=== PATIENT | female | born 1970 | race Caucasian/White ===

== ENCOUNTER 2020-05-13 08:07 | Outpatient (CLI) | payer OTHER, SELFPAY ==
--- NOTE | 2020-05-19 01:31 | SLEEP_ITS ---
Home Sleep Test DATE OF STUDY: 05/13/2020 ORDERING PHYSICIAN: Carlos Bronson MD REASON FOR THE STUDY: Hypersomnia. HISTORY: This patient is a 49-year-old female, 5 feet tall, weighing 286 pounds with a body mass index of 55.8. She has complaints of difficulty sleeping for many years. She has been laid off due to COVID. In the past, she has worked at night, so normally she stays up late. Normal bedtime is somewhere around 2 or 3 in the morning. 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 She sleeps best when she is overly exhausted. She does toss and turn frequently at night and has a difficult time getting a restorative night of sleep. She wakes up at least 2-3 times at night to go to the bathroom. It takes her quite a while in the morning to wake up. She is not aware of any family history of sleep-disordered breathing. She constantly snores. When she is with friends on a weekend trip, they tell her that she snores loudly. Occasionally, she awakens at night with heartburn, belching, or cough. She frequently awakens from sleep feeling short of breath. She rarely has trouble sleeping with a cold, occasionally gasps for breath at night, occasionally has breathing problems at night witnessed by others, rarely sweats excessively at night and rarely notices her heart pounding or beating irregularly at night. She frequently falls asleep during the day and involuntarily, but never while driving. She does not fall asleep with physical effort. She does not have loss of muscle tone with strong emotion. She rarely has daytime difficulties due to excessive sleepiness, rarely feels paralyzed on waking or falling asleep. She occasionally has vivid dreamlike scenes upon awakening or falling asleep. She is rarely afraid to go to sleep. She rarely has nightmares. She occasionally remembers her dreams, has racing thoughts, has feelings of sadness, depression, anxiety, and muscular tension. She occasionally notices parts of her body jerking and she occasionally kicks at night. She constantly has crawly achy feelings in her legs and constantly has leg pains especially in her knee at night. She does not have morning jaw pain, occasionally grinds her teeth during sleep. She constantly is bothered by pain during the day from her knee. She occasionally is awakened by pain at night. She constantly wakes up feeling stiff in the morning with sore achy muscles and pain in her neck, spine, and mostly in her legs as well as her back. She has fatigue, memory problems, insomnia, and depression. Normal bedtime is currently 3 a.m. and she waits until she is absolutely exhausted to fall asleep. She wakes 3-4 times at night, usually to go to the bathroom and then will stay awake 15 minutes. She tosses and turns often. Often turns television on at night. She wakes in the morning at 11 a.m. She does take naps. A short nap may be refreshing. She feels terrible when she wakes in the morning and it takes quite a while for her to wake up. She feels better in the evening. MEDICAL COMORBIDITIES: Depression, asthma with allergies, nasal polyps, hypertension, history of breast cancer, microscopic hematuria, hyperlipidemia. MEDICATIONS: 1. Hydrochlorothiazide/triamterene 37.5/25 one daily. 2. Montelukast 10 mg a day. 3. Lamotrigine 300 mg daily. 4. Fluticasone 1 squirt twice a day each nostril. 5. Advair 100/50 one puff twice a day. HABITS: Previously smoked tobacco, none for 20 years. Caffeine, 2 to 3 cups of coffee a day. No alcohol. No recreational drugs. DESCRIPTION OF THE STUDY: On the [place] Sleepiness Scale, the score is 11. This was conducted as an unattended type III portable
== END 2020-05-13 08:08 | disposition home or self-care (01) ==
LOC: ANHCSM 08:08
PROVIDERS: PCP Family Medicine; Visit Provider Family Medicine
DX: G47.10 Hypersomnia, unspecified (principal); G47.33 Obstructive sleep apnea (adult) (pediatric); Z68.43 Body mass index [BMI] 50.0-59.9, adult; I10 Essential (primary) hypertension
CPT/HCPCS: 95806

== ENCOUNTER → 2020-08-31 17:49 | Outpatient (CLI) | payer OTHER, SELFPAY ==
--- NOTE | ~2020-08-31 | XR_ITS ---
XR knee LT min 4V 08/31/2020 19:17 Indication: Left knee pain Procedure: 4 views left knee Comparison: No prior studies for comparison. Findings: There is severe osteoarthritis of the left knee, most advanced in the medial compartment. N o fracture or traumatic malalignment. No significant joint effusion. Impression: 1: Severe osteoarthritis of the left knee. Reviewed, dictated and finalized at location A. ING PAN TENDER Impression: 1: Severe osteoarthritis of the left knee.
--- NOTE | ~2020-08-31 | XR_ITS ---
XR knee RT min 4V 08/31/2020 19:17 Indication: Knee pain Procedure: 4 views right knee Comparison: No prior studies for comparison. Findings: There is severe osteoarthritis of the right knee, most advanced in the medial compartment. No fracture or traumatic malalignment. No significant joint effusion. Impression: 1: Severe osteoarthritis of the right knee. Reviewed, dictated and finalized at location A. RVISOR WATERPROOFING Impression: 1: Severe osteoarthritis of the right knee.
== END ==
PROVIDERS: PCP Family Medicine; Visit Provider Orthopaedic Surgery
DX: M25.562 Pain in left knee (principal); M25.561 Pain in right knee; M17.0 Bilateral primary osteoarthritis of knee
CPT/HCPCS: 73564

== ENCOUNTER → 2021-07-01 03:52 | Outpatient (CLI) | payer OTHER, SELFPAY ==
[2021-07-01 16:43] LABS: SARS-CoV-2 RNA PCR Negative
== END ==
PROVIDERS: PCP Family Medicine; Visit Provider Internal Medicine Gastroenterology
DX: Z01.812 Encounter for preprocedural laboratory examination (principal); Z20.822 Contact with and (suspected) exposure to COVID-19
CPT/HCPCS: C9803; U0003; U0005

== ENCOUNTER 2021-07-04 00:32 | Day surgery (SDC) | payer OTHER, SELFPAY ==
[2021-06-17 13:39] VITALS: BMI 52.9
[2021-07-04 10:00] VITALS: BP 143/80; PULSE 91; RESP 18; TEMP 36.6; O2SAT 97; BMI 53.7
[2021-07-04] MEDS: LACTATED RINGERS 1,000 ML 150 ML IV CONT (10:18)
--- NOTE | 2021-07-04 10:33 | WPDANESEPPF ---
Anes - Initial Pre Proc Eval Procedure: Operation Date: 07/04/21 11:15 Proposed Procedures p Screening Colonoscopy - Roland Lucero MD Date/Time: 07/04/21 10:33 Surgeon: Roland Lucero MD Pre Op Diagnosis: hx of colon polyps, neoplasm screening Patient Data Age: 51 Gender: F Height: 1.55 m Weight: 129 kg Last Vital Signs Temp 97.9 F 07/04/21 10:00 Pulse 91 07/04/21 10:00 Resp 18 07/04/21 10:00 BP 143/80 H 07/04/21 10:00 Pulse Ox 97 07/04/21 10:00 Allergies Allergy/AdvReac Type Severity Reaction Status Date / Time aspirin Allergy Severe Anaphylaxis Verified 07/04/21 09:59 pseudoephedrine Allergy Severe Hives Verified 07/04/21 09:59 Home Medications Medication Instructions Recorded Confirmed Type simethicone 125 mg capsule 125 mg PO QID PRN 07/11/19 06/17/21 History triamcinolone acetonide 0.5 % 1 applic TOPICAL BID 07/11/19 06/17/21 History topical cream cholecalciferol (vitamin D3) 25 2,000 unit PO DAILY #1 cap 07/21/20 06/17/21 Rx mcg (1,000 unit) capsule triamterene 37.5 1 cap PO DAILY #90 cap 07/21/20 06/17/21 Rx mg-hydrochlorothiazide 25 mg capsule albuterol sulfate 90 mcg/actuation 2 inh INHALATION QID PRN #1 each 05/31/21 06/17/21 Rx breath activated powder inhaler amoxicillin 875 mg tablet 875 mg PO Q12H #20 tablet 06/13/21 06/17/21 Rx fluticasone 100 mcg-salmeterol 50 1 ea INHALATION Q12H #180 ea 06/13/21 06/17/21 Rx mcg/dose blistr powdr for inhalation fluticasone propionate 50 1 spray NASAL BID #59.4 ml 06/13/21 06/17/21 Rx mcg/actuation nasal spray,suspension lisinopril 10 mg tablet 10 mg PO DAILY #90 tablet 06/13/21 06/17/21 Rx montelukast 10 mg tablet 10 mg PO DAILY #90 tablet 06/13/21 06/17/21 Rx lamotrigine [Lamictal XR] 300 mg PO HS 06/17/21 06/17/21 History omega-3 fatty acids-vitamin E 1 cap PO DAILY 06/17/21 06/17/21 History [Fish Oil] Patient hx anesthesia problems: none Family hx anesthesia problems: none Results Review: All pre-operative results and documents have been reviewed as part of the pre-operative evaluation. [facility] Past Medical History Medical History (Updated 06/14/21 @ 07:34 by Carlos Bronson MD) Acute non-recurrent maxillary sinusitis Bilateral chronic knee pain Bipolar 2 disorder Breast cancer Chronic acquired lymphedema Chronic left shoulder pain COPD (chronic obstructive pulmonary disease) Degenerative arthritis of knee, bilateral Elevated fasting glucose glucose 95 and hemoglobin A1c 5.4 on 06/13/2021 Encounter for screening for other viral diseases Encounter for screening laboratory testing for COVID-19 virus Essential (primary) hypertension Gastro-esophageal reflux disease without esophagitis History of breast cancer in female Hordeolum externum of right lower eyelid Hypersomnia Infected sebaceous cyst of skin (02/03/21) left lower back Microscopic hematuria 2+ blood on 06/13/2021 Mixed hyperlipidemia total cholesterol 231, triglycerides 98, HDL 65 and LDL 145 on 06/13/2021 Moderate persistent asthma, uncomplicated Morbid obesity with BMI of 50.0-59.9, adult Obstructive sleep apnea Polyp of colon Seasonal allergic rhinitis Stasis dermatitis of both legs Vitamin D insufficiency Surgical History Surgical History H/O mastectomy H/O total hysterectomy Social History Social History Smoking packs per day: 0.5 Smoking cigarettes per day: 10.0 Years smoked: 15 Smoking pack-years: 7.50 Smoking status: Former smoker Tobacco type: cigarettes Alcohol intake: current Drinks per week: 6 Alcohol use details: beer Substance use: never Living arrangements: alone Gender identity (if verbalized by the patient): Female Spiritual care concerns: No Anes - Eval Final PreProcedure Day of Procedure 07/04/21 10:33 Patient weight: s
--- NOTE | 2021-07-04 10:55 | PM.HPGS ---
History of Present Illness History of Present Illness Consent: Risks, benefits, and alternatives have been discussed and questions answered. Patient agrees to proceed with procedure. Chief complaint: hx of colon polyps, neoplasm screening Narrative: Helen Mathews is a 51 year old female with colon polyps about 6 years ago. Review of Systems Constitutional: Constitutional: Denies headache(s) and Denies weakness Eyes: Eyes: Denies blurry vision ENT: Reports Normal hearing present, Denies headache(s) and Denies neck pain Cardiovascular: Cardiovascular: Denies chest pain and Denies dyspnea Respiratory: Respiratory: Denies dyspnea Gastrointestinal: Gastrointestinal: Reports no additional gastrointestinal complaints Genitourinary: Genitourinary: Denies dysuria Musculoskeletal: Musculoskeletal: Denies neck pain Integumentary/Breasts: Skin/Breast: Denies dry skin Neurologic: Reports Normal hearing present, Denies headache(s) and Denies weakness Psychiatric: Psychiatric: Denies anxiety Endocrine: Endocrine: Denies change in body appearance Hematologic/Lymphatic: Hematologic/Lymphatic: Denies easy bleeding Allergic/Immunologic: Allergic/Immunologic: Denies urticaria PMFSH Past Medical History Medical History (Updated 06/14/21 @ 07:34 by Carlos Bronson MD) Acute non-recurrent maxillary sinusitis Bilateral chronic knee pain Bipolar 2 disorder Breast cancer Chronic acquired lymphedema Chronic left shoulder pain COPD (chronic obstructive pulmonary disease) Degenerative arthritis of knee, bilateral Elevated fasting glucose glucose 95 and hemoglobin A1c 5.4 on 06/13/2021 Encounter for screening for other viral diseases Encounter for screening laboratory testing for COVID-19 virus Essential (primary) hypertension Gastro-esophageal reflux disease without esophagitis History of breast cancer in female Hordeolum externum of right lower eyelid Hypersomnia Infected sebaceous cyst of skin (02/03/21) left lower back Microscopic hematuria 2+ blood on 06/13/2021 Mixed hyperlipidemia total cholesterol 231, triglycerides 98, HDL 65 and LDL 145 on 06/13/2021 Moderate persistent asthma, uncomplicated Morbid obesity with BMI of 50.0-59.9, adult Obstructive sleep apnea Polyp of colon Seasonal allergic rhinitis Stasis dermatitis of both legs Vitamin D insufficiency Surgical History Surgical History H/O mastectomy H/O total hysterectomy Social History Social History Smoking packs per day: 0.5 Smoking cigarettes per day: 10.0 Years smoked: 15 Smoking pack-years: 7.50 Smoking status: Former smoker Tobacco type: cigarettes Alcohol intake: current Drinks per week: 6 Alcohol use details: beer Substance use: never Living arrangements: alone Gender identity (if verbalized by the patient): Female Spiritual care concerns: No Meds Home Medications and Allergies Home Medications Medication Instructions Recorded Confirmed Type simethicone 125 mg capsule 125 mg PO QID PRN 07/11/19 06/17/21 History triamcinolone acetonide 0.5 % 1 applic TOPICAL BID 07/11/19 06/17/21 History topical cream cholecalciferol (vitamin D3) 25 2,000 unit PO DAILY #1 cap 07/21/20 06/17/21 Rx mcg (1,000 unit) capsule triamterene 37.5 1 cap PO DAILY #90 cap 07/21/20 06/17/21 Rx mg-hydrochlorothiazide 25 mg capsule albuterol sulfate 90 mcg/actuation 2 inh INHALATION QID PRN #1 each 05/31/21 06/17/21 Rx breath activated powder inhaler amoxicillin 875 mg tablet 875 mg PO Q12H #20 tablet 06/13/21 06/17/21 Rx fluticasone 100 mcg-salmeterol 50 1 ea INHALATION Q12H #180 ea 06/13/21 06/17/21 Rx mcg/dose blistr powdr for inhalation fluticasone propionate 50 1 spray NASAL BID #59.4 ml 06/13/21 06/17/21 Rx mcg/actuation nasal spray,suspension lisinopril 10 mg tablet 10 mg PO DAILY #9
[2021-07-04 11:21] VITALS: BP 132/93; PULSE 74; RESP 25; O2SAT 100
[2021-07-04 11:31] VITALS: BP 137/89; PULSE 72; RESP 22; O2SAT 100
[2021-07-04 11:41] VITALS: BP 139/96; PULSE 75; RESP 26; O2SAT 100
== END 2021-07-04 11:55 | disposition home or self-care (01) ==
PROVIDERS: PCP Family Medicine; Visit Provider Internal Medicine Gastroenterology
PROC: 0DJD8ZZ Inspection of Lower Intestinal Tract, Via Natural or Artificial Opening Endoscopic (ICD-10-PCS; CPT 45378; principal; 2021-07-04 11:15)
DX: Z12.11 Encounter for screening for malignant neoplasm of colon (principal); K57.30 Diverticulosis of large intestine without perforation or abscess without bleeding; K64.8 Other hemorrhoids; K63.5 Polyp of colon; F31.81 Bipolar II disorder; I89.0 Lymphedema, not elsewhere classified; J44.9 Chronic obstructive pulmonary disease, unspecified; I10 Essential (primary) hypertension; K21.9 Gastro-esophageal reflux disease without esophagitis; G47.33 Obstructive sleep apnea (adult) (pediatric); E55.9 Vitamin D deficiency, unspecified; I87.2 Venous insufficiency (chronic) (peripheral); E78.2 Mixed hyperlipidemia; J45.909 Unspecified asthma, uncomplicated; R31.29 Other microscopic hematuria; H00.012 Hordeolum externum right lower eyelid; Z87.891 Personal history of nicotine dependence; Z79.51 Long term (current) use of inhaled steroids; E66.01 Morbid (severe) obesity due to excess calories; Z68.43 Body mass index [BMI] 50.0-59.9, adult
CPT/HCPCS: 45380; 88305; C9803; J2704; J7120; U0003; U0005

== ENCOUNTER 2021-07-06 21:35 | Emergency (ER) | payer OTHER, SELFPAY ==
--- NOTE | ~2021-07-06 | XR_ITS ---
XR chest 1V portable INDICATION: Fatigue. Portacatheter removed. Patient feels like piece (side. TECHNIQUE: 2 view chest. FINDINGS: No prior studies for comparison. Heart size normal. Mild pulmonary vascular congestion. The re are linear densities in the right paratracheal and right perihilar regions. Residual catheter segm ent cannot be excluded. IMPRESSION: 1. No acute cardiopulmonary disease. 2: Possible residual catheter segment in the right paratracheal/perihilar location. Reviewed, dictated and finalized at location A. IMPRESSION: 1. No acute cardiopulmonary disease. 2: Possible residual catheter segment in the right paratracheal/perihilar loca tion.
--- NOTE | ~2021-07-06 | CT_ITS ---
EXAMINATION: CT diagnostic chest wo con DATE: 07/06/2021 23:48 INDICATION: Possible retained catheter from Port-A-Cath. TECHNIQUE: Computed tomography (CT) of the chest was performed without intravenous contrast. The dose -length product was 800.54 mGy-cm. Automated exposure control and iterative reconstruction technique were employed. COMPARISON: Chest x-ray dated 07/06/2021 FINDINGS: No radiopaque foreign bodies identified to suggest residual catheter fragment. No significa nt pleural or pericardial effusion. Heart size normal. No lymphadenopathy. No abnormal foreign bodies are identified in the neck. Thyroid gland is unremarkable. No significant pleural or pericardial eff usion. The upper abdomen is unremarkable. Mucosal thickening of the maxillary sinuses partially visua lized. No endobronchial lesions. No focal airspace consolidation. No suspicious pulmonary nodules or masses. No pneumothorax. IMPRESSION: 1. No evidence for residual catheter fragment in the neck or chest. 2: No acute cardiopulmonary disease. Reviewed, dictated and finalized at location A.
[2021-07-06 21:56] VITALS: BP 155/86; PULSE 97; RESP 18; TEMP 36.9; O2SAT 100
--- NOTE | 2021-07-06 22:51 | ED.GENADULT ---
HPI - General Adult General Chief complaint: Unspecified Stated complaint: surgery today for port removal, feels catheter Time Seen by Provider: 07/06/21 22:27 Source: patient and RN notes reviewed Mode of arrival: ambulatory Limitations: no limitations History of Present Illness HPI narrative: This is a 52 year old female who presents to ER for concern of possible retained catheter in neck. Patient had a port a cath removed today at [facility] . She reports her catheter has been in place for 9 years. She states once she returned home after the procedure she still felt rope like object in left neck. She states it still feels like catheter is her left lower neck. She denies fever, nausea, vomiting or shortness of breath. she still has some sleepiness. Related Data Home Medications Medication Instructions Recorded Confirmed simethicone 125 mg capsule 125 mg PO QID PRN 07/11/19 06/17/21 triamcinolone acetonide 0.5 % 1 applic TOPICAL BID 07/11/19 06/17/21 topical cream lamotrigine [Lamictal XR] 300 mg PO HS 06/17/21 06/17/21 omega-3 fatty acids-vitamin E 1 cap PO DAILY 06/17/21 06/17/21 [Fish Oil] Allergies Allergy/AdvReac Type Severity Reaction Status Date / Time aspirin Allergy Severe Anaphylaxis Verified 07/04/21 09:59 pseudoephedrine Allergy Severe Hives Verified 07/04/21 09:59 Review of Systems Review of Systems: All systems reviewed & are unremarkable except as noted in HPI and below PMFSH Past Medical History Medical History (Updated 07/07/21 @ 00:16 by Rosalba Morris MD) Acute non-recurrent maxillary sinusitis Bilateral chronic knee pain Bipolar 2 disorder Breast cancer Chronic acquired lymphedema Chronic left shoulder pain COPD (chronic obstructive pulmonary disease) Degenerative arthritis of knee, bilateral Elevated fasting glucose glucose 95 and hemoglobin A1c 5.4 on 06/13/2021 Encounter for screening for other viral diseases Encounter for screening laboratory testing for COVID-19 virus Essential (primary) hypertension Gastro-esophageal reflux disease without esophagitis History of breast cancer in female Hordeolum externum of right lower eyelid Hypersomnia Infected sebaceous cyst of skin (02/03/21) left lower back Microscopic hematuria 2+ blood on 06/13/2021 Mixed hyperlipidemia total cholesterol 231, triglycerides 98, HDL 65 and LDL 145 on 06/13/2021 Moderate persistent asthma, uncomplicated Morbid obesity with BMI of 50.0-59.9, adult Obstructive sleep apnea Polyp of colon (07/04/21) colon polyp 2 mm transverse colon on colonoscopy 07/04/2021 Seasonal allergic rhinitis Stasis dermatitis of both legs Vitamin D insufficiency Surgical History Surgical History H/O mastectomy H/O total hysterectomy Social History Social History Smoking packs per day: 0.5 Smoking cigarettes per day: 10.0 Years smoked: 15 Smoking pack-years: 7.50 Smoking status: Former smoker Tobacco type: cigarettes Alcohol intake: current Drinks per week: 6 Alcohol use details: beer Substance use: never Gender identity (if verbalized by the patient): Female Spiritual care concerns: No Exam Const: General: no acute distress, well developed, alert and awake Nutritional Appearance: obese Orientation/consciousness: patient oriented x3 Limitations: no limitations HENMT: Head: normocephalic and atraumatic Face and sinus: face symmetric Eyes: Pupils: Equal, round and reactive pupils present EOM: EOMs intact bilaterally Neck: Neck: full ROM and no lymphadenopathy Other: left lower back of neck with rope like structure, no erythema Chest: Other: left upper chest incision with skin adhesive, no drainage, no erythema Resp: Effort & Inspection: normal respiratory effort and able to speak in complete sentences Auscultation: clear to auscultation bilaterall
--- NOTE | 2021-07-06 23:16 | PC.NURSE ---
Assumed care of pt at this time. Pt alert and upright on stretcher, no request at this time. pt and family updated on POC.
[2021-07-06 23:17] VITALS: BP 148/70; PULSE 92; RESP 16; O2SAT 97
[2021-07-07 00:47] VITALS: BP 151/60; PULSE 89; RESP 16; O2SAT 96
== END 2021-07-07 00:30 | disposition home or self-care (01) ==
PROVIDERS: Emergency Provider General Practice; PCP Family Medicine
DX: L90.5 Scar conditions and fibrosis of skin (principal); G89.29 Other chronic pain; J44.9 Chronic obstructive pulmonary disease, unspecified; I10 Essential (primary) hypertension; K21.9 Gastro-esophageal reflux disease without esophagitis; G47.30 Sleep apnea, unspecified; Z85.3 Personal history of malignant neoplasm of breast
CPT/HCPCS: 71045; 71250; 99284